=== PATIENT | female | born 1955 | race Caucasian/White ===

== ENCOUNTER 2018-12-19 11:05 | Emergency (ER) | payer OTHER ==
[~2018-12-19] VITALS: Ht 165.1 cm; Wt 60.0 kg
--- NOTE | 2018-12-19 11:51 | NUR ---
PT PRESENTED TO ED AFTER FALLING DOWN 7 STAIRS WITH + LOC. PT A&OX4 NOW. PT PLACED IN C-COLLAR AND PLACED ON BACK. PT WITH FACIAL ABRASIONS. PT WITH ABD PAIN THAT RADIATES TO BACK. PT WITH PAIN ALL OVER. IV STARTED AND BLOOD DRAWN. AWAITING CT SCAN.
[2018-12-19] MEDS ORDERED: HYDROmorphone 1 MG/ML, 1ML VIAL ONE (11:54)
[2018-12-19] MEDS ORDERED: ONDANSETRON 2MG/ML, 2ML ONE (11:54)
[2018-12-19 11:59] LABS: BASOPHILS # (AUTO) 0.04 x10^3/uL (0-0.1); BASOPHILS % (AUTO) 0 % (0-1); EOSINOPHILS # (AUTO) 0.03 x10^3/uL (0-0.4); EOSINOPHILS % (AUTO) 0 % (1-7); LYMPHOCYTES # (AUTO) 1.48 x10^3/uL (1-3.4); LYMPHOCYTES % (AUTO) 17 % (22-44); MD NO; MEAN CORPUSCULAR HEMOGLOBIN 34.1 pg (27.0-34.8); MEAN CORPUSCULAR HGB CONC 33.1 g/dL (32.4-35.8); MEAN PLATELET VOLUME 7.3 fL (7.4-10.4); MONOCYTES # (AUTO) 0.45 x10^3/uL (0.2-0.8); MONOCYTES % (AUTO) 5 % (2-9); NEUTROPHILS # (AUTO) 6.98 x10^3/uL (1.8-6.8); NEUTROPHILS % (AUTO) 78 % (42-75); PLATELET COUNT 360 x10^3/uL (130-400); RED BLOOD COUNT 4.29 x10^6/uL (3.82-5.3); RED CELL DISTRIBUTION WIDTH 15.3 % (9.6-15.2)
[2018-12-19] MEDS ORDERED: HYDROmorphone 2 MG/ML, 1ML IVPush PRN (12:00)
--- NOTE | 2018-12-19 12:05 | NUR ---
PT TAKEN TO CT SCAN
[2018-12-19 12:11] LABS: ALANINE AMINOTRANSFERASE 15 U/L (12-78); ANION GAP 8 mmol/L (5-15); CALCIUM 8.6 mg/dL (8.5-10.1); CHLORIDE 101 mmol/L (98-107); CREATININE 1.16 mg/dL (0.55-1.02)
[2018-12-19 12:13] LABS: ALKALINE PHOSPHATASE 54 U/L (45-117); BILIRUBIN,TOTAL 0.3 mg/dL (0.2-1.0)
--- NOTE | 2018-12-19 12:27 | NUR ---
Lunch break RN: Pt is currently still in CT dept.
--- NOTE | 2018-12-19 12:47 | NUR ---
Pt back from CT. Chest, face & back of head pain 01/19. Communicated that pain meds can be repeated in about 20min & pt is fine with that. Attempted to void on bedpan but unable to & would like to wait until she is cleared to get OOB.
[2018-12-19] MEDS ORDERED: OMNIPAQUE 350 MG/ML, 100ML BOTTLE ONE (13:03)
[2018-12-19] MEDS ORDERED: METHOCARBAMOL 750 MG TABLET ONE (13:24)
[2018-12-19] MEDS ORDERED: METHOCARBAMOL 750 MG TABLET PO ONE (13:30)
[2018-12-19] MEDS ORDERED: BACITRACIN ZINC OINT 500U/GM, 0.9 GM TP ONE (13:30)
[2018-12-19 14:17] VITALS: BP 131/79
--- NOTE | 2018-12-19 14:17 | NUR ---
Patient given discharge instructions and they have confirmed that they understand the instructions. Patient ambulatory with steady gait to restroom & then to d/c desk. Provided w/ reusable ice pack to use at home. Friend is driving.
== END 2018-12-19 14:19 | disposition home or self-care (01) ==
LOC: ED 14:08
DX: S02.2XXA Fracture of nasal bones, initial encounter for closed fracture (principal); S16.1XXA Strain of muscle, fascia and tendon at neck level, initial encounter; S20.219A Contusion of unspecified front wall of thorax, initial encounter; S00.83XA Contusion of other part of head, initial encounter; S06.899A Other specified intracranial injury with loss of consciousness of unspecified duration, initial encounter; Z88.5 Allergy status to narcotic agent; W10.9XXA Fall (on) (from) unspecified stairs and steps, initial encounter; Y93.89 Activity, other specified; Y92.009 Unspecified place in unspecified non-institutional (private) residence as the place of occurrence of the external cause; Y99.8 Other external cause status
CPT/HCPCS: 36415; 70450; 70486; 71260; 72125; 74177; 80053; 85025; 96374; 99284; J1170; Q9967

== ENCOUNTER 2019-08-05 20:57 | Inpatient (IN) | payer OTHER ==
[~2019-08-05] VITALS: Ht 165.1 cm; Wt 57.6 kg
--- NOTE | 2019-08-05 21:24 | NUR ---
BIB EMS FROM HOME WAS FEELING REALLY SHAKEY AND ANXIOUS AND DISORIENTED, CHEST STARTED TO HURT FEEL PRESSURE. PT REPORTS STOPPING CLONIPIN AND PREDISONE AFTER LONG PERIOD OF USE. STOPPED MEDS 2DAYS AGO. PT HAS HX OF HTN TAKES LISINOPRIL "JUST WHEN I NEED IT" VERSED EN ROUTE
--- NOTE | 2019-08-05 21:32 | NUR ---
PT AMB TO RESTROOM W STEADY GAIT
[2019-08-05 21:55] LABS: BASOPHILS # (AUTO) 0.05 x10^3/uL (0-0.1); BASOPHILS % (AUTO) 1 % (0-1); EOSINOPHILS # (AUTO) 0.07 x10^3/uL (0-0.4); EOSINOPHILS % (AUTO) 1 % (1-7); LYMPHOCYTES # (AUTO) 2.17 x10^3/uL (1-3.4); LYMPHOCYTES % (AUTO) 32 % (22-44); MD NO; MEAN CORPUSCULAR HEMOGLOBIN 34.9 pg (27.0-34.8); MEAN CORPUSCULAR VOLUME 102.6 fL (80-100); MEAN PLATELET VOLUME 7.6 fL (7.4-10.4); MONOCYTES # (AUTO) 0.69 x10^3/uL (0.2-0.8); MONOCYTES % (AUTO) 10 % (2-9); NEUTROPHILS # (AUTO) 3.84 x10^3/uL (1.8-6.8); NEUTROPHILS % (AUTO) 56 % (42-75); PLATELET COUNT 281 x10^3/uL (130-400); RED BLOOD COUNT 4.06 x10^6/uL (3.82-5.3); RED CELL DISTRIBUTION WIDTH 13.2 % (9.6-15.2)
[2019-08-05 22:06] LABS: ALBUMIN 3.7 g/dL (3.4-5.0); ANION GAP 8 mmol/L (5-15); CALCIUM 8.8 mg/dL (8.5-10.1); CHLORIDE 98 mmol/L (98-107)
[2019-08-05 22:12] LABS: ALANINE AMINOTRANSFERASE 15 U/L (12-78); ALKALINE PHOSPHATASE 43 U/L (45-117); BILIRUBIN,TOTAL 0.8 mg/dL (0.2-1.0); CREATININE 1.09 mg/dL (0.55-1.02); TOTAL PROTEIN 7.1 g/dL (6.4-8.2); TROPONIN I < 0.015 ng/mL (0.000-0.045)
[2019-08-05] MEDS ORDERED: ASPIRIN 81 MG TABLET CHEW PO ONE (22:30)
[2019-08-05] MEDS ORDERED: ASPIRIN 81 MG TABLET CHEW ONE (22:38)
[2019-08-05] MEDS ORDERED: HYDR-826 PO (22:48)
[2019-08-05] MEDS ORDERED: ESTR1TAB36 PO (22:48)
[2019-08-05] MEDS ORDERED: PREG25CA PO (22:48)
[2019-08-05] MEDS ORDERED: LISI-167 PO (22:48)
[2019-08-05] MEDS ORDERED: HYDR-3245 PO (22:48)
[2019-08-05] MEDS ORDERED: CITA40TA5 PO (22:48)
--- NOTE | 2019-08-05 23:11 | NUR ---
RECEIVED REPORT FROM LUIS LEAHY. ASSUMING CARE AT THIS TIME.
[2019-08-05] MEDS ORDERED: BISACODYL 10 MG SUPP PR PRN (23:30)
[2019-08-05] MEDS ORDERED: POLYETHYLENE GLYCOL 17 GM PACKET PO PRN (23:30)
[2019-08-05] MEDS ORDERED: HYDROcodone/APAP 10/325 MG TABLET PO PRN (23:30)
[2019-08-05] MEDS ORDERED: ONDANSETRON ODT 4 MG PO PRN (23:30)
[2019-08-05] MEDS ORDERED: hydrALAzine 20 MG/ML, 1ML IVPush PRN (23:30)
[2019-08-05] MEDS ORDERED: NITROGLYCERIN 0.4 MG BOTTLE (25 TABS) SL PRN (23:30)
--- NOTE | 2019-08-06 00:19 | NUR ---
REPORT GIVEN TO CHRISTINE LEAHY.
[2019-08-06] MEDS ORDERED: MORPHINE SULFATE 4 MG/ML, 1ML ONE (00:40)
[2019-08-06] MEDS: morphine SULFATE 10 MG/ML, 1ML IVPush PRN ×2 (00:43→03:54)
[2019-08-06] MEDS: SODIUM CHLORIDE 0.9% 1,000 ML IV SCH ×2 (00:54→12:35)
[2019-08-06] MEDS: HEPARIN 5,000 UNITS/ML, 1ML SQ SCH ×2 (01:10→07:52)
[2019-08-06 01:12] VITALS: BP 166/96
[2019-08-06] MEDS: PREGABALIN 25 MG CAPSULE PO SCH ×2 (01:31→11:11)
[2019-08-06] MEDS: ESTRATEST MC SCH ×2 (04:30→12:30)
[2019-08-06] MEDS ORDERED: ASPIRIN 81 MG TABLET EC PO SCH (06:00)
[2019-08-06 07:15] VITALS: BP 177/104
[2019-08-06 07:37] LABS: ANION GAP 8 mmol/L (5-15); CALCIUM 8.5 mg/dL (8.5-10.1); CHLORIDE 102 mmol/L (98-107); CREATININE 1.14 mg/dL (0.55-1.02)
[2019-08-06 07:41] LABS: TROPONIN I < 0.015 ng/mL (0.000-0.045)
[2019-08-06 08:00] VITALS: BP 173/113
[2019-08-06] MEDS ORDERED: SENNA/DOCUSATE TABLET PO SCH (09:00)
[2019-08-06] MEDS ORDERED: CITALOPRAM 20 MG TABLET PO SCH (09:00)
[2019-08-06] MEDS ORDERED: LISINOPRIL 20 MG TABLET PO SCH (09:00)
[2019-08-06] MEDS ORDERED: REGADENOSON 0.4 MG/5 ML SYRINGE ONE (09:23)
[2019-08-06 11:08] VITALS: BP 152/103
[2019-08-06 11:34] LABS: TROPONIN I < 0.015 ng/mL (0.000-0.045)
[2019-08-06 12:49] VITALS: BP 154/102
[2019-08-06] MEDS ORDERED: ASPI81TA45 PO (12:56)
== END 2019-08-06 15:39 | disposition home or self-care (01) | DRG 392 ==
LOC: ED 22:47 → EDIP 23:15 → ICU 08-06 00:48 → 5SO 08-06 10:48 → DCLOUNGE 08-06 15:18
PROVIDERS: ADMIT Internal Medicine; ATTEND Internal Medicine
DX: K21.0 Gastro-esophageal reflux disease with esophagitis (principal); E87.1 Hypo-osmolality and hyponatremia; F11.20 Opioid dependence, uncomplicated; D75.89 Other specified diseases of blood and blood-forming organs; K80.80 Other cholelithiasis without obstruction; F32.9 Major depressive disorder, single episode, unspecified; F43.10 Post-traumatic stress disorder, unspecified; G89.29 Other chronic pain; I10 Essential (primary) hypertension; Z79.52 Long term (current) use of systemic steroids; Z85.820 Personal history of malignant melanoma of skin; Z90.710 Acquired absence of both cervix and uterus; Z88.8 Allergy status to other drugs, medicaments and biological substances
CPT/HCPCS: 36415; 71045; 78452; 80048; 80053; 82607; 84439; 84443; 84484; 85025; 87081; 93005; 93017; 99285; J1644; J2785; A9502; C9898; J2270; J7030; Q0177

== ENCOUNTER → 2020-06-25 | Outpatient (CLI) | payer OTHER ==
[~2020-06-25] MED LIST: ASPI81TA45 PO; CITA40TA5 PO; ESTR1TAB36 PO; HYDR-3245 PO; HYDR-826 PO; LISI-167 PO; PREG25CA PO
== END | disposition home or self-care (01) ==
LOC: CFH 12:53
PROVIDERS: ATTEND Internal Medicine Cardiovascular Disease
DX: I06.1 Rheumatic aortic insufficiency (principal); I06.8 Other rheumatic aortic valve diseases; I11.9 Hypertensive heart disease without heart failure; Z87.891 Personal history of nicotine dependence
CPT/HCPCS: 93306